=== PATIENT | male | born 1945 | race Two or more races ===

== ENCOUNTER 2017-12-11 16:30 | Emergency (ER) | payer MEDICARE, MEDICAID ==
[2017-12-11 16:54] VITALS: BP 137/69; PULSE 70; RESP 18; TEMP 98.4; O2SAT 99
--- NOTE | 2017-12-11 17:33 | C.PDOC ---
History Of Present Illness 72 year old male for evaluation of sudden onset of blurred vision to right eye after forcefully sneezing several days ago. Denies eye pain, discharge, headache , weakness, numbness. Time Seen by Provider: 12/11/17 17:08 Chief Complaint (Nursing): Eye Problem History Per: Patient History/Exam Limitations: no limitations Onset/Duration Of Symptoms: Days Current Symptoms Are (Timing): Still Present Injury To Eye?: No Past Medical History Reviewed: Historical Data, Nursing Documentation, Vital Signs Vital Signs: Last Vital Signs Temp 98.4 F 12/11/17 16:52 Pulse 70 12/11/17 16:52 Resp 18 12/11/17 16:52 BP 137/69 12/11/17 16:52 Pulse Ox 99 12/11/17 18:23 - Medical History PMH: HTN Surgical History: Coronary Stent (X 2) Family History: States: No Known Family Hx - Social History Hx Alcohol Use: No Hx Substance Use: No Review Of Systems Except As Marked, All Systems Reviewed And Found Negative. Eyes: Positive for: Vision Change (blurred vision). Negative for: Pain, Other ( discharge) Neurological: Negative for: Weakness, Numbness, Headache Physical Exam - Physical Exam Appears: Non-toxic, No Acute Distress Skin: Warm, Dry Head: Atraumatic, Normacephalic Eye(s): bilateral: PERRL, right: Other (Visual acuity was checked and patient was unable to see anything. Contrary to triage there is no redness or pain. No erythema, drainage. ) Neck: Supple Gastrointestinal/Abdominal: Tenderness Neurological/Psych: Oriented x3, Normal Speech, Normal Cognition Gait: Steady ED Course And Treatment O2 Sat by Pulse Oximetry: 99 (RA) Pulse Ox Interpretation: Normal Progress Note: Discussed with Dr. Crook and was told that a blood vessel may have ruptured in the right eye. Nothing can be done in the ER. Informed patient to avoid physical activity and visit Dr. Crook's office on tuesday12/13/2017 at 08:00. Disposition - Disposition Referrals: Jet Crook MD [Staff Provider] - Disposition: HOME/ ROUTINE Disposition Time: 17:33 Condition: STABLE Additional Instructions: Follow up with on December 13 at 8 am. Return to ED if feel worse. Forms: [facility] (Kinyarwanda) - Clinical Impression Clinical Impression: Blurred vision, right eye - PA / SWEATBAND FLANGER / Resident Statement MD/DO has reviewed & agrees with the documentation as recorded. - Scribe Statement The provider has reviewed the documentation as recorded by the Scribe Cesar Schulz All medical record entries made by the Jamesibe were at my direction and personally dictated by me. I have reviewed the chart and agree that the record accurately reflects my personal performance of the history, physical exam, medical decision making, and the department course for this patient. I have also personally directed, reviewed, and agree with the discharge instructions and disposition.
== END 2017-12-11 18:57 | disposition home or self-care (01) ==
LOC: C.ER 16:30
DX: H53.8 Other visual disturbances (principal); I10 Essential (primary) hypertension